=== PATIENT | female | born 1975 | race Caucasian/White ===

== ENCOUNTER → 2024-08-09 08:02 | Outpatient (REF) | payer BC, SELFPAY | LOC: DHVS 08:02 | PROVIDERS: ATTENDING PHYSICIAN Surgery Vascular Surgery; FAMILY PHYSICIAN Registered Nurse | DX: I77.3 Arterial fibromuscular dysplasia (principal) | CPT/HCPCS: 93880 ==

== ENCOUNTER → 2025-10-21 20:22 | Outpatient (REF) | payer BC, SELFPAY | LOC: PAVMRI 20:22 | PROVIDERS: ATTENDING PHYSICIAN Psychiatry & Neurology Neurology; FAMILY PHYSICIAN Registered Nurse | DX: G43.909 Migraine, unspecified, not intractable, without status migrainosus (principal) | CPT/HCPCS: 70551 ==